=== PATIENT | male | born 2000 | race African-American/Black ===

== ENCOUNTER 2019-02-04 21:04 | Emergency (ER) | payer OTHER ==
[2019-02-04 21:54] VITALS: BP 135/66
--- NOTE | 2019-02-04 23:29 | ER Document Report ---
ED General - General Chief Complaint: Leg Pain Stated Complaint: PAIN FROM HEEL TO KNEE Time Seen by Provider: 02/04/19 23:17 Mode of Arrival: Ambulatory Information source: Patient TRAVEL OUTSIDE OF THE [place] IN LAST 30 DAYS: No - HPI Patient complains to provider of: Right knee and right ankle pain Onset: Other - 4 days ago Onset/Duration: Constant Severity: Severe Pain Level: 4 Associated symptoms: None Exacerbated by: Denies Relieved by: Denies Similar symptoms previously: No Recently seen / treated by doctor: No Notes: 18-year-old male coming in today with chief complaint of right knee and right ankle pain. 4 days ago reports he was on a hike initially he says that his knee twisted and the kneecap shifted/dislocated temporarily laterally and is back to normal and subsequently later he twisted his right ankle and it seems to be continuing to hurt him and swell. - Related Data Allergies/Adverse Reactions: No Known Drug Allergies Allergy (Verified 02/04/19 21:54) Past Medical History - General Information source: Patient - Social History Smoking Status: Never Smoker Family History: Reviewed & Not Pertinent Review of Systems - Review of Systems Notes: Constitutional: No fevers. No chills. EENT: No eye redness. No eye pain. No ear pain. No sore throat. Cardiovascular: No chest pain. No palpitations. Respiratory: No cough. No shortness of breath. No respiratory distress. Gastrointestinal: No abdominal pain. No nausea, vomiting, or diarrhea. Genitourinary: Atraumatic. No lesions. No pain. No discharge. Musculoskeletal: Positive right ankle and right knee pain Skin: No rash or lesions. Lymphatic: No swollen lymph nodes. Neurologic: No headache. No syncope. Psychiatric: No suicidal or homicidal ideation. Physical Exam - Vital signs Vitals: Temp Pulse Resp BP Pulse Ox 97.8 F 63 18 135/66 H 100 02/04/19 21:52 02/04/19 21:52 02/04/19 21:52 02/04/19 21:52 02/04/19 21:52 - Notes Notes: General: Well-developed, well-nourished. In no acute distress. Non-toxic appearing. Cardiac: Well-perfused. Regular rate and rhythm. No murmurs, rubs, or gallops. Pulmonary: No respiratory distress. No cyanosis. Bilateral lung fiels are clear to auscultation. Abdominal: Non-distended. Non-rigid. Bowels sounds are present in all four quadrants. No guarding or rebound. HEENT: Head is atraumatic. Conjunctivae not reddened. No tearing. PERRL. EOMI. Orbits atraumatic. No periorbital swelling or erythema. Oropharynx is without erythema, swelling, or exudates. Neck: Supple. No adenopathy. No meningismus. Dermatologic: Warm with good turgor. No rash. Atraumatic. Chest: Atraumatic. No chest wall tenderness to palpation. Musculoskeletal: Diffuse moderate soft tissue swelling right ankle. No bony deformity. Diffuse tenderness. Good range of motion. Distal neurovascular exam is intact. Right knee full range of motion. No ligamentous laxity. No bony deformities. Genitourinary: Examination deferred Neurologic: No gross neurologic deficits. Psychiatric: Normal mood. Course - Re-evaluation Re-evalutation: 02/04/19 23:28 We will x-ray the right ankle. Probable sprain 02/05/19 00:24 Right ankle negative. Will Ruben wrap and crutch and depart - Vital Signs Vital signs: Temp Pulse Resp BP Pulse Ox 97.8 F 63 18 135/66 H 100 02/04/19 21:52 02/04/19 21:52 02/04/19 21:52 02/04/19 21:52 02/04/19 21:52 Discharge - Discharge Clinical Impression: Ankle sprain Qualifiers: Encounter type: initial encounter Involved ligament of ankle: unspecified ligament Laterality: right Qualified Code(s): S93.401A - Sprain of unspecified ligament of right ankle, initial encounter Knee strain Qualifiers: Encounter type: initial encounter Laterality: right Qualified Code(s): S86.911A - Strain of unspecified muscle(s) and tendon(s) at lower leg level, right leg, initial encounter Condition: Good Disposition: HOME, SELF-CARE Instructions: Ice Packs ([facility]), Sprained Ankle ([facility]) Additional Instructions: Use Ruben wrap and crutches to get around without putting direct weight on your ankle. This will also help your knee. This should get better within a week. If not follow-up with an orthopedic doctor. Prescriptions: Naproxen 500 mg PO BID 7 Days #14 tablet Referrals: VELIA HERBERT MD [ACTIVE STAFF] - Follow up in 1 week
--- NOTE | 2019-02-05 00:12 | RADIOLOGY REPORT (SQ) ---
EXAM DESCRIPTION: XR ANKLE 3 OR MORE VIEWS COMPLETED DATE/TME: 02/04/2019 23:23 CLINICAL HISTORY: TWISTED ANKLE 4 DAYS AGO. COMPARISON: None FINDINGS: Three x-ray views of the right ankle were submitted. There is no acute fracture or dislocation. Bone mineralization is within normal limits. There is no radiopaque foreign body material. IMPRESSION: No acute fracture or dislocation.
== END 2019-02-05 00:41 | disposition home or self-care (01) ==
LOC: ER 21:04
DX: S93.401A Sprain of unspecified ligament of right ankle, initial encounter (principal); S86.911A Strain of unspecified muscle(s) and tendon(s) at lower leg level, right leg, initial encounter; M79.604 Pain in right leg; M25.561 Pain in right knee; M25.571 Pain in right ankle and joints of right foot; X50.1XXA Overexertion from prolonged static or awkward postures, initial encounter
CPT/HCPCS: 99283